=== PATIENT | female | born 1965 | race Caucasian/White ===

== ENCOUNTER 2017-11-29 17:07 | Emergency (ER) | payer MEDICAID ==
[~2017-11-29] VITALS: Ht 182.9 cm; Wt 92.0 kg
[2017-11-29 17:30] VITALS: BP 98/59
== END 2017-11-29 18:19 | disposition left against medical advice (07) ==
LOC: EDBD 17:07 → ED 18:13
DX: R56.9 Unspecified convulsions (principal); F17.200 Nicotine dependence, unspecified, uncomplicated
CPT/HCPCS: 71045; 99283; 99284